=== PATIENT | female | born 1995 | race Caucasian/White ===

== ENCOUNTER 2018-01-02 09:05 | Emergency (ER) | payer SELFPAY, OTHER ==
[2018-01-02 09:46] LABS: ADD MAN DIFF? NO
[2018-01-02 09:52] LABS: BASOPHILS % 0.6 % (0.0-2.0); EOSINOPHILS # 0.1 10^3/ul (0.0-0.5); EOSINOPHILS % 2.4 % (0.0-7.0); HEMATOCRIT 36.7 % (37.0-47.0); HEMOGLOBIN 11.7 g/dl (12.0-16.0); LYMPHOCYTES # 1.6 10^3/ul (0.8-2.9); LYMPHOCYTES % 29.3 % (15.0-51.0); MEAN CORPUSCULAR HEMOGLOBIN 26.2 pg (29.0-33.0); MEAN CORPUSCULAR HGB CONC 31.9 g/dl (32.0-37.0); MEAN CORPUSCULAR VOLUME 82.3 fl (82.0-101.0); MEAN PLATELET VOLUME 12.1 fl (7.4-10.4); MONOCYTE # 0.4 10^3/ul (0.3-0.9); MONOCYTES % 7.7 % (0.0-11.0); NEUTROPHIL # 3.2 10^3/ul (1.6-7.5); PLATELET COUNT 271 10^3/UL (140-415); RED BLOOD COUNT 4.46 10^6/ul (4.20-5.40); RED CELL DISTRIBUTION WIDTH 15.5 % (11.5-14.5)
[2018-01-02 09:52] LABS: WHITE BLOOD COUNT 5.3 10^3/ul (4.8-10.8)
[2018-01-02 09:58] LABS: ADD UMIC YES; UR ASCORBIC ACID NEGATIVE (NEGATIVE); UR BILIRUBIN (Dip) NEGATIVE (NEGATIVE); UR BLOOD (Dip) 3+ mg/dL (NEGATIVE); UR CLARITY CLOUDY (CLEAR); UR COLOR RED (YELLOW); UR GLUCOSE (Dip) NEGATIVE (NEGATIVE); UR KETONES (Dip) NEGATIVE (NEGATIVE); UR LEUKOCYTE ESTERASE (Dip) NEGATIVE Leu/ul (NEGATIVE); UR MUCUS MODERATE /HPF (NONE SEEN); UR NITRITE (Dip) NEGATIVE (NEGATIVE); UR RBC > 182 /HPF (0-5); UR SPECIFIC GRAVITY (Dip) 1.025 (1.003-1.030); UR SQUAMOUS EPITHELIAL CELL FEW /HPF (FEW); UR TOTAL PROTEIN (Dip) 2+ mg/dl (NEGATIVE); UR UROBILINOGEN (Dip) NEGATIVE (NEGATIVE); UR WBC 0 /HPF (0-5)
== END 2018-01-02 10:45 | disposition home or self-care (01) ==
LOC: FTE 10:45
DX: O20.0 Threatened abortion (principal); Z3A.01 Less than 8 weeks gestation of pregnancy
CPT/HCPCS: 36415; 76801; 76817; 81001; 84702; 85025; 86900; 86901; 99284-25

== ENCOUNTER 2019-03-25 05:45 | Inpatient (IN) | payer OTHER ==
[2019-03-25 07:33] LABS: ALANINE AMINOTRANSFERASE 75 IU/L (13-69); ALBUMIN 3.4 g/dl (3.3-4.9); ALBUMIN/GLOBULIN RATIO 0.97; ALKALINE PHOSPHATASE 475 IU/L (42-121); ANION GAP 9 (5-13); ASPARTATE AMINO TRANSFERASE 61 IU/L (15-46); BILIRUBIN,INDIRECT 0.6 mg/dl (0-1.1); BILIRUBIN,TOTAL 0.6 mg/dl (0.2-1.3); BLOOD UREA NITROGEN 5 mg/dl (7-20); CARBON DIOXIDE 21 mmol/L (21-31); CHLORIDE 109 mmol/L (97-110); CREATININE 0.54 mg/dl (0.44-1.00); Estimated GFR > 60 mL/min (>60); GLUCOSE 87 mg/dl (70-220); POTASSIUM 3.5 mmol/L (3.5-5.1); SODIUM 139 mmol/L (135-144); TOTAL PROTEIN 6.9 g/dl (6.1-8.1); URIC ACID 4.9 mg/dl (3.1-7.9)
[2019-03-25 07:56] LABS: ADD UMIC NO; UR ASCORBIC ACID NEGATIVE (NEGATIVE); UR BILIRUBIN (Dip) 1+ mg/dL (NEGATIVE); UR BLOOD (Dip) NEGATIVE (NEGATIVE); UR CLARITY CLEAR (CLEAR); UR COLOR AMBER (YELLOW); UR GLUCOSE (Dip) NEGATIVE (NEGATIVE); UR KETONES (Dip) NEGATIVE (NEGATIVE); UR LEUKOCYTE ESTERASE (Dip) NEGATIVE Leu/ul (NEGATIVE); UR NITRITE (Dip) NEGATIVE (NEGATIVE); UR SPECIFIC GRAVITY (Dip) 1.017 (1.003-1.030); UR TOTAL PROTEIN (Dip) NEGATIVE (NEGATIVE); UR UROBILINOGEN (Dip) 1+ mg/dL (NEGATIVE)
[2019-03-25] MEDS ORDERED: MISOPROSTOL 200 MCG TAB PR (09:30)
[2019-03-25] MEDS ORDERED: IBUPROFEN 600 MG TAB PO (09:30)
[2019-03-25] MEDS ORDERED: CARBOPROST 250 MCG INJ IM (09:30)
[2019-03-25] MEDS ORDERED: AMPICILLIN 2 GM/NS (PMX) 100 ML IV (09:30)
[2019-03-25] MEDS ORDERED: METHYLERGONOVINE 0.2 MG INJ IM (09:30)
[2019-03-25 09:33] LABS: ADD MAN DIFF? NO
[2019-03-25 09:37] LABS: BASOPHILS % 0.3 % (0.0-2.0); EOSINOPHILS % 0.5 % (0.0-7.0); HEMATOCRIT 37.8 % (37.0-47.0); HEMOGLOBIN 12.6 g/dl (12.0-16.0); LYMPHOCYTES # 1.2 10^3/ul (0.8-2.9); LYMPHOCYTES % 14.9 % (15.0-51.0); MEAN CORPUSCULAR HEMOGLOBIN 27.1 pg (29.0-33.0); MEAN CORPUSCULAR HGB CONC 33.3 g/dl (32.0-37.0); MEAN CORPUSCULAR VOLUME 81.3 fl (82.0-101.0); MEAN PLATELET VOLUME 11.9 fl (7.4-10.4); MONOCYTE # 0.6 10^3/ul (0.3-0.9); MONOCYTES % 7.6 % (0.0-11.0); NEUTROPHILS % 76.3 % (39.0-77.0); PLATELET COUNT 181 10^3/UL (140-415); RED BLOOD COUNT 4.65 10^6/ul (4.20-5.40); RED CELL DISTRIBUTION WIDTH 13.3 % (11.5-14.5)
[2019-03-25 09:37] LABS: WHITE BLOOD COUNT 7.9 10^3/ul (4.8-10.8)
[2019-03-25 09:41] LABS: INR 0.88; PT RATIO 0.9
[2019-03-25 09:42] LABS: PARTIAL THROMBOPLASTIN TIME 26.6 Sec (23.0-35.0)
[2019-03-25 10:16] LABS: HEPATITIS B SURFACE ANTIGEN NEGATIVE (NEGATIVE)
[2019-03-25] MEDS: LACTATED RINGER'S 1,000 ML IV ×3 (11:43→16:21)
[2019-03-25] MEDS ORDERED: AMPICILLIN 1 GM/NS (PMX) 50 ML IV (13:00)
[2019-03-25] MEDS: BUTORPHANOL 2 MG INJ IV (13:22)
[2019-03-25 14:57] LABS: RAPID PLASMA REAGIN NONREACTIVE (NR)
[2019-03-25] MEDS: OXYTOCIN 30 UNITS/LR 500 ML IV ×3 (15:03→23:51)
[2019-03-25] MEDS ORDERED: FENTAnyl 2MCG/ML-ROPIV 0.2% 100 ML (15:39)
[2019-03-25] MEDS ORDERED: NALOXONE (0.4 MG/ML) INJ IV (16:00)
[2019-03-25] MEDS ORDERED: ONDANSETRON 4 MG INJ IV (16:00)
[2019-03-25] MEDS ORDERED: DIPHENHYDRAMINE 50 MG INJ IV (16:00)
[2019-03-25] MEDS: FENTAnyl 2MCG/ML-ROPIV 0.2% 100 ML BAG EPI (16:20)
[2019-03-25] MEDS: URSODIOL 300 MG CAP PO (19:07)
[2019-03-25] MEDS: MINERAL OIL LIGHT 10 ML VIAL TOP (23:52)
[2019-03-25] MEDS: LIDOCAINE 1% (MPF) 30 ML INJ INJ (23:52)
[2019-03-26] MEDS: KETOROLAC 30 MG INJ IV (00:09)
[2019-03-26] MEDS: ACETAMINOPHEN 500 MG TAB PO (00:09)
[2019-03-26] MEDS ORDERED: METHYLERGONOVINE 0.2 MG INJ IM (02:00)
[2019-03-26] MEDS ORDERED: HYDROCODONE/APAP (5/325) TAB PO ×2 (02:00)
[2019-03-26] MEDS ORDERED: CARBOPROST 250 MCG INJ IM (02:00)
[2019-03-26] MEDS ORDERED: OXYTOCIN 30 UNITS/LR 500 ML IV (02:00)
[2019-03-26] MEDS ORDERED: BENZOCAINE 20% 56 ML SPRAY TOP (02:00)
[2019-03-26] MEDS ORDERED: ZOLPIDEM 5 MG TAB PO (02:00)
[2019-03-26] MEDS ORDERED: MISOPROSTOL 200 MCG TAB PR (02:00)
[2019-03-26] MEDS: LACTATED RINGER'S 1,000 ML IV* (03:47)
[2019-03-26] MEDS: IBUPROFEN 600 MG TAB PO ×4 (05:40→23:36)
[2019-03-26] MEDS: CEPHALEXIN 500 MG CAP PO ×4 (05:40→23:36)
[2019-03-26] MEDS: WITCH HAZEL/GLYCERIN PAD PR (06:15)
[2019-03-26] MEDS: DIBUCAINE 1% 30 GM OINT TOP (06:15)
[2019-03-26] MEDS: LANOLIN HPA 1 PKT TOP (06:16)
[2019-03-26 07:02] LABS: ADD MAN DIFF? NO; BASOPHILS % 0.1 % (0.0-2.0); EOSINOPHILS % 0.1 % (0.0-7.0); HEMATOCRIT 35.3 % (37.0-47.0); HEMOGLOBIN 11.4 g/dl (12.0-16.0); LYMPHOCYTES # 1.5 10^3/ul (0.8-2.9); LYMPHOCYTES % 10.7 % (15.0-51.0); MEAN CORPUSCULAR HEMOGLOBIN 26.8 pg (29.0-33.0); MEAN CORPUSCULAR HGB CONC 32.3 g/dl (32.0-37.0); MEAN CORPUSCULAR VOLUME 83.1 fl (82.0-101.0); MEAN PLATELET VOLUME 12.4 fl (7.4-10.4); MONOCYTE # 0.8 10^3/ul (0.3-0.9); MONOCYTES % 5.5 % (0.0-11.0); NEUTROPHIL # 11.7 10^3/ul (1.6-7.5); NEUTROPHILS % 82.9 % (39.0-77.0); PLATELET COUNT 156 10^3/UL (140-415); RED BLOOD COUNT 4.25 10^6/ul (4.20-5.40); RED CELL DISTRIBUTION WIDTH 13.7 % (11.5-14.5)
[2019-03-26 07:02] LABS: WHITE BLOOD COUNT 14.1 10^3/ul (4.8-10.8)
[2019-03-26] MEDS: MAGNESIUM HYDROXIDE 30ML CUP PO ×2 (09:11→21:21)
[2019-03-26] MEDS: SENNA/DOCUSATE NA (8.6MG/50MG) TAB PO ×2 (09:11→21:21)
[2019-03-26] MEDS: URSODIOL 300 MG CAP PO ×3 (09:11→21:21)
[2019-03-27] MEDS: CEPHALEXIN 500 MG CAP PO ×2 (05:35→11:19)
[2019-03-27] MEDS: IBUPROFEN 600 MG TAB PO ×2 (05:36→11:19)
[2019-03-27] MEDS: DIPHTH/TET/ACEL PERTUSS (ADULT) 0.5 ML VIAL IM* (07:40)
[2019-03-27] MEDS: MEASLES,MUMPS,RUBELLA VACCINE INJ SC* (07:41)
[2019-03-27] MEDS: VARICELLA VACCINE LIVE/PF 1,350 UNIT/0.5 ML ML SC* (07:41)
[2019-03-27] MEDS: URSODIOL 300 MG CAP PO (08:30)
[2019-03-27] MEDS: SENNA/DOCUSATE NA (8.6MG/50MG) TAB PO (08:30)
[2019-03-27] MEDS: MAGNESIUM HYDROXIDE 30ML CUP PO (08:30)
[2019-03-28 13:22] LABS: CHENODEOXYCHOLIC ACID 3.9 umol/L (< OR = 3.1); CHOLIC ACID 12.1 umol/L (< OR = 1.8); DEOXYCHOLIC ACID 0.5 umol/L (< OR = 2.4); TOTAL BILE ACIDS 16.5 umol/L (< OR = 6.8)
== END 2019-03-27 12:35 | disposition home or self-care (01) | DRG 805 ==
LOC: OBT 05:45 → PP1 03-26 01:09 → L-D 05:45 → OBT 08:30 → L-D 08:30
PROC: 10E0XZZ Delivery of Products of Conception, External Approach (ICD-10-PCS; principal; 2019-03-25)
PROC: 0UQMXZZ Repair Vulva, External Approach (ICD-10-PCS; 2019-03-25)
DX: O26.62 Liver and biliary tract disorders in childbirth (principal); K83.1 Obstruction of bile duct; Z37.0 Single live birth; O70.0 First degree perineal laceration during delivery; Z3A.38 38 weeks gestation of pregnancy
CPT/HCPCS: 62322; 76815; 76818; 80053; 81003; 83789; 84560; 85025; 85610; 85730; 86592; 86900; 86901; 87086; 87340; 90716; 99464